=== PATIENT | male | born 1995 | race Caucasian/White ===

== ENCOUNTER 2022-07-09 13:15 | Emergency (ER) | payer SELFPAY ==
[~2022-07-09] VITALS: Ht 177.8 cm; Wt 86.0 kg
[2022-07-09 13:27] VITALS: BP 142/82
[2022-07-09] MEDS ORDERED: LIDOCAINE HCL 1% 20ML VIAL (Pyxis) INJ INFIL ONE (13:45)
[2022-07-09] MEDS ORDERED: BACITRACIN ZINC OINT UDPKT TOP ONE (13:45)
[2022-07-09] MEDS ORDERED: ACETAMINOPHEN 325MG TABLET PO ONE (13:45)
[2022-07-09] MEDS ORDERED: TETANUS, DIPHTHERIA, PERTUSSIS VAC/PF 0.5ML (>10YR OLD) IM ONE (13:45)
[2022-07-09] MEDS ORDERED: LIDOCAINE HCL 1% 10 MG/ML 10ML VIAL IJ NR (14:00)
[2022-07-09] MEDS ORDERED: BO1 TP (14:35)
[2022-07-09] MEDS ORDERED: PETR1BAN TP (14:39)
[2022-07-09] MEDS ORDERED: POLY1BAN TP (14:39)
== END 2022-07-09 15:20 | disposition home or self-care (01) ==
LOC: ER 13:21
DX: S61.012A Laceration without foreign body of left thumb without damage to nail, initial encounter (principal); X58.XXXA Exposure to other specified factors, initial encounter; Y93.89 Activity, other specified; Y92.89 Other specified places as the place of occurrence of the external cause; Y99.8 Other external cause status
CPT/HCPCS: 12001; 90471; 90715; 99283; J3490

== ENCOUNTER 2022-07-11 15:28 | Emergency (ER) | payer SELFPAY ==
[~2022-07-11] VITALS: Ht 177.8 cm; Wt 89.0 kg
[~2022-07-11 15:28] MED LIST: BO1 TP; PETR1BAN TP; POLY1BAN TP
[2022-07-11 15:52] VITALS: BP 142/81
== END 2022-07-11 19:32 | disposition home or self-care (01) ==
LOC: ER 15:28
DX: Z48.00 Encounter for change or removal of nonsurgical wound dressing (principal)
CPT/HCPCS: 99281

== ENCOUNTER 2022-07-17 15:06 | Emergency (ER) | payer SELFPAY ==
[~2022-07-17] VITALS: Ht 165.1 cm; Wt 77.0 kg
[2022-07-17 15:12] VITALS: BP 146/87
== END 2022-07-17 17:16 | disposition home or self-care (01) ==
LOC: ER 15:06
DX: Z48.02 Encounter for removal of sutures (principal)
CPT/HCPCS: 99281